=== PATIENT | female | born 1985 | race Caucasian/White ===

== ENCOUNTER 2016-06-03 22:31 | Emergency (ER) | payer OTHER ==
[~2016-06-03] VITALS: Ht 165.1 cm; Wt 71.7 kg
[~2016-06-03 22:31] MED LIST: 'PARAFON FORTE500 M1 PO; ANAPROX DS550 MG PO; CLARITIN-D 12 H1 TAB PO; CYCLOBENZAPRINE10 MG PO; FLONASE ALLERG9.9 ML NAS; Fioricet 325 MG1 TAB PO; MACROBID100 M1 PO; MOTRIN800 MG PO; NAPROSYN500 MG PO; NORCO 5-325 TA1 EACH PO; PREDNISONE10 MG PO; PROZAC20 MG PO; VISTARIL25 M2 PO
[2016-06-04] MEDS ORDERED: ZOFRAN ODT4 MG SL (00:28)
[2016-06-04] MEDS ORDERED: ZYRTEC10 MG PO (00:28)
== END 2016-06-04 00:27 | disposition home or self-care (01) ==
LOC: ED 22:31
DX: B34.9 Viral infection, unspecified (principal); F17.200 Nicotine dependence, unspecified, uncomplicated; Z98.890 Other specified postprocedural states; Z98.51 Tubal ligation status

== ENCOUNTER → 2016-06-06 | Outpatient (CLI) | payer OTHER ==
[~2016-06-06] MED LIST changes: +ZOFRAN ODT4 MG SL; +ZYRTEC10 MG PO
== END | disposition home or self-care (01) ==
LOC: LAB 09:01
DX: K92.1 Melena (principal)

== ENCOUNTER 2016-09-15 16:40 | Emergency (ER) | payer SELFPAY ==
[~2016-09-15] VITALS: Wt 76.2 kg
[2016-09-15 17:29] LABS: BILIRUBIN NEGATIVE (NEGATIVE); BLOOD TRACE-INTACT (NEGATIVE); CLARITY CLEAR (CLEAR); COLOR YELLOW (YELLOW); GLUCOSE NEGATIVE (NEGATIVE); KETONE NEGATIVE (NEGATIVE); LEUKO ESTERASE 2+ (NEGATIVE); NITRITE NEGATIVE (NEGATIVE); PROTEIN NEGATIVE (NEGATIVE); SPECIFIC GRAVITY <= 1.005 (1.005-1.030); UROBILINOGEN 0.2 E.U./dl (0.2-1.0)
[2016-09-15 17:34] LABS: BACTERIA TRACE
[2016-09-15 17:36] LABS: URINE REFLEX COMMENT YES (NO)
[2016-09-15] MEDS ORDERED: CIPRO500 MG PO (18:05)
== END 2016-09-15 18:26 | disposition home or self-care (01) ==
LOC: ED 16:40
PROVIDERS: Registered Nurse
DX: N30.01 Acute cystitis with hematuria (principal); A59.9 Trichomoniasis, unspecified; F17.200 Nicotine dependence, unspecified, uncomplicated

== ENCOUNTER 2021-02-22 11:16 | Emergency (ER) | payer OTHER ==
[~2021-02-22] VITALS: Wt 99.8 kg
[~2021-02-22 11:16] MED LIST changes: +CIPRO500 MG PO
[2021-02-22 11:48] LABS: BILIRUBIN Negative (Negative); BLOOD Negative (Negative); CLARITY Clear (Clear); COLOR Yellow (Yellow); GLUCOSE Negative (Negative); KETONE Negative (Negative); LEUKO ESTERASE Negative (Negative); NITRITE Negative (Negative); PH 5.5 (4.5-8.0); UROBILINOGEN 0.2 E.U./dl (0.0-1.0)
[2021-02-22 12:05] LABS: BASO # 0.1 10*3/uL (0.0-0.1); BASO % 0.5 % (0.0-1.0); EOS # 0.4 10*3/uL (0.0-0.4); EOS % 4.6 % (1.0-4.0); HEMATOCRIT 43.4 % (37.0-47.0); LYMPH # 2.7 10*3/uL (1.3-4.4); LYMPH % 29.4 % (27.0-41.0); MEAN CELL VOLUME 91.8 fl (81.0-99.0); MEAN CORPUSCULAR HGB CONC 32.7 g/dl (33.0-37.0); MEAN PLATELET VOLUME 10.2 fl (9.6-12.3); MONO # 0.4 10*3/uL (0.1-1.0); MONO % 4.4 % (3.0-9.0); NEUT # 5.5 10*3/uL (2.3-7.9); NEUT % 60.9 % (47.0-73.0); PLATELET COUNT AUTOMATED 277 10*3/uL (130-400); RED BLOOD COUNT 4.73 10*6/uL (4.10-5.10); RED CELL DISTRI WIDTH 13.7 % (0-14.5); WHITE BLOOD COUNT 9.1 10*3/uL (4.8-10.8)
[2021-02-22 12:05] LABS: BACTERIA 1+
[2021-02-22 12:06] LABS: WBC 0-2 wbc/hpf (0-5)
[2021-02-22 12:20] LABS: ALBUMIN 3.5 gm/dl (3.1-4.5); ALKALINE PHOSPHATASE 83 U/L (45-117); BUN 14 mg/dl (7-24); CHLORIDE 110 mmol/L (98-107); CREATININE 0.89 mg/dL (0.55-1.02); LIPASE 83 U/L (73-393); POTASSIUM 4.8 mmol/L (3.5-5.1); SGOT/AST 7 IU/L (3-35); SGPT/ALT 15 U/L (12-78); SODIUM 139 mmol/L (136-145); TOTAL PROTEIN 6.9 gm/dL (6.4-8.2)
== END 2021-02-23 00:23 | disposition home or self-care (01) ==
LOC: ED 11:16
PROVIDERS: Physician Assistant
DX: M54.50 Low back pain, unspecified (principal); Z20.822 Contact with and (suspected) exposure to COVID-19; R53.83 Other fatigue

== ENCOUNTER 2021-07-18 15:28 | Emergency (ER) | payer OTHER ==
[~2021-07-18] VITALS: Ht 165.1 cm; Wt 99.8 kg
[2021-07-18 16:29] LABS: BILIRUBIN Negative (Negative); BLOOD Negative (Negative); CLARITY Cloudy (Clear); COLOR Yellow (Yellow); GLUCOSE Negative (Negative); KETONE Trace (Negative); LEUKO ESTERASE Negative (Negative); NITRITE Negative (Negative); SPECIFIC GRAVITY >= 1.030 (1.001-1.030)
[2021-07-18 16:38] LABS: BACTERIA 3+; EPITHELIAL CELLS 16-20
[2021-07-18 16:43] LABS: YEAST 1+
[2021-07-18] MEDS ORDERED: LEVOFLOXACIN750 M2 PO ×2 (16:56→17:24)
[2021-07-18] MEDS ORDERED: FLUCONAZOLE100 MG PO ×2 (17:00→17:24)
[2021-07-18] MEDS ORDERED: HYDROCODONE-AC1 EAC1 PO (17:01)
== END 2021-07-18 17:07 | disposition home or self-care (01) ==
LOC: ED 15:28
PROVIDERS: Student in an Organized Health Care Education/Training Program
DX: N39.0 Urinary tract infection, site not specified (principal)

== ENCOUNTER 2022-06-03 13:49 | Emergency (ER) | payer OTHER ==
[~2022-06-03] VITALS: Ht 165.1 cm; Wt 104.3 kg
[~2022-06-03 13:49] MED LIST changes: +FLUCONAZOLE100 MG PO; +HYDROCODONE-AC1 EAC1 PO; +LEVOFLOXACIN750 M2 PO
[2022-06-03] MEDS ORDERED: NAPROSYN500 MG PO (16:02)
== END 2022-06-03 16:01 | disposition home or self-care (01) ==
LOC: ED 13:49
DX: I80.02 Phlebitis and thrombophlebitis of superficial vessels of left lower extremity (principal); F41.9 Anxiety disorder, unspecified; F32.A Depression, unspecified; Z98.890 Other specified postprocedural states; Z98.51 Tubal ligation status; Z87.891 Personal history of nicotine dependence